=== PATIENT | female | born 1960 | race Caucasian/White ===

== ENCOUNTER 2022-09-01 07:20 | Inpatient (IN) | payer OTHER ==
[~2022-09-01] VITALS: Ht 152.4 cm; Wt 72.6 kg
--- NOTE | 2022-09-01 07:30 | NUR ---
Pt. BIB paramedics. AOX4, able to make needs known, lao speaking female. L hand IV site noted.
[2022-09-01] MEDS ORDERED: FAMO20TA8 PO (07:33)
[2022-09-01] MEDS ORDERED: DOCU100C36 PO (07:33)
[2022-09-01] MEDS ORDERED: MELO-105 PO (07:33)
[2022-09-01] MEDS ORDERED: INSU100I26 SQ (07:33)
[2022-09-01] MEDS ORDERED: ATOR20TA (07:33)
[2022-09-01] MEDS ORDERED: LOSA100T31 PO (07:33)
[2022-09-01] MEDS ORDERED: GLIM4TAB37 PO (07:33)
[2022-09-01] MEDS ORDERED: FERR325T28 PO (07:33)
[2022-09-01] MEDS ORDERED: GABA-532 PO (07:33)
[2022-09-01] MEDS ORDERED: MECLIZINE HCL 25 MG TABLET ONE (07:39)
[2022-09-01] MEDS ORDERED: PROCHLORPERAZINE EDISYLATE 10 MG/2 ML VIAL ONE (07:39)
[2022-09-01] MEDS ORDERED: IV NORMAL SALINE 1000 ML BAG IV ONE (07:45)
[2022-09-01] MEDS ORDERED: PROCHLORPERAZINE EDISYLATE 10 MG/2 ML VIAL IV ONE (07:45)
[2022-09-01] MEDS ORDERED: MECLIZINE HCL 25 MG TABLET PO ONE (07:45)
[2022-09-01 07:55] LABS: MEAN CORPUSCULAR HEMOGLOBIN 30.4 uug (24.7-32.8); MEAN CORPUSCULAR VOLUME 87.3 fL (75.5-95.3); PLATELET COUNT (AUTO) 390 K/uL (179-408)
--- NOTE | 2022-09-01 07:55 | NUR ---
gave all due meds as ordered. son at bedside. reminded pt. to provide urine
[2022-09-01 07:58] LABS: HEMATOCRIT 17.9 % (31.2-41.9)
--- NOTE | 2022-09-01 07:59 | NUR ---
cxr in progress
--- NOTE | 2022-09-01 08:53 | NUR ---
pt. in bed with son at bedside, VSS at this time
[2022-09-01] MEDS ORDERED: SWABABLE VALVE TRANSFER SET EA MC ONE (08:59)
[2022-09-01] MEDS ORDERED: IOHEXOL 300MG/ML 100 ML INFUS..BTL ONE (08:59)
[2022-09-01] MEDS ORDERED: IV NORMAL SALINE 250 ML IV ONE (08:59)
[2022-09-01 09:39] LABS: LIPASE 196 U/L (73-393)
[2022-09-01 09:40] LABS: ALANINE AMINOTRANSFERASE 17 U/L (14-59); ALKALINE PHOSPHATASE 107 U/L (50-136); ASPARTATE AMINOTRANSFERASE 12 U/L (15-37); BILIRUBIN,DIRECT < 0.1 mg/dL (0.0-0.2); BILIRUBIN,TOTAL 0.1 mg/dL (0.2-1.0); CARBON DIOXIDE 18 mmol/L (21-32); CHLORIDE 88 mmol/L (98-107); GLUCOSE 241 mg/dL (74-106); TOTAL PROTEIN, SERUM 5.7 g/dL (6.4-8.2); UREA NITROGEN, BLOOD 73 mg/dL (7-18)
--- NOTE | 2022-09-01 10:03 | NUR ---
blood transfusion at this time. VSS at this time.
--- NOTE | 2022-09-01 10:25 | NUR ---
re-check VS for blood transfusion, VSS, afebrile.
--- NOTE | 2022-09-01 10:25 | NUR ---
calling epic for call panel
--- NOTE | 2022-09-01 10:45 | NUR ---
called Antonio for report, informed that will call back
--- NOTE | 2022-09-01 10:46 | NUR ---
MD Disla spoke to MD Clements
--- NOTE | 2022-09-01 10:46 | NUR ---
pt. still in CT
--- NOTE | 2022-09-01 10:55 | NUR ---
pt. back from CT
--- NOTE | 2022-09-01 11:03 | NUR ---
endorsed to ZOE Alvarez
--- NOTE | 2022-09-01 11:53 | NUR ---
covid swab and collected sent to lab
--- NOTE | 2022-09-01 12:14 | NUR ---
collected urine and sent to lab
[2022-09-01 12:28] LABS: *BILIRUBIN,URIN NEGATIVE (NEGATIVE); *CLARITY,URINE CLEAR (CLEAR); *COLOR,URINE YELLOW (YELLOW); *KETONES,URINE NEGATIVE (NEGATIVE); *UROBILINOGEN,URINE 0.2 E.U./dl (NORMAL); LEUKOCYTE ESTERASE ,URINE NEGATIVE (NEGATIVE); NITRITE, URINE NEGATIVE (NEGATIVE); PH,URINE 5.5 (5.0-8.0)
[2022-09-01 13:25] VITALS: BP 150/51
[2022-09-01 13:36] LABS: *BLOOD, URINE TRACE (NEGATIVE); UGLUCOSE 1+ (NEGATIVE)
--- NOTE | 2022-09-01 13:43 | NUR ---
Pt. was admitted to TELE unit from ER and received report from Rylie. Pt. lives with family. Pt. had an episode of syncope at home. Denies hitting head. Pt. is alert and oriented x4. Able to make the need known. Skin is clean and intact. Continent of both bowel and bladder. compliance with the care given. Romanian speaking only. Call light within reach. Son noted at her bedside. Received 1 unit of blood in ER. No adverse reaction noted. Will keep monitoring the patient.
[2022-09-01 14:11] LABS: THYROID STIMULATING HORMONE 2.209 mIU/mL (0.358-3.740)
[2022-09-01 15:32] VITALS: BP 130/64
[2022-09-01] MEDS ORDERED: GABAPENTIN 100 MG CAPSULE PO SCH (16:00)
[2022-09-01] MEDS ORDERED: MORPHINE SULFATE 2 MG/1 ML DISP.SYRIN IV PRN (16:15)
[2022-09-01] MEDS ORDERED: ONDANSETRON 4 MG/2 ML VIAL IV PRN (16:15)
[2022-09-01] MEDS ORDERED: TEMAZEPAM 15 MG CAPSULE PO PRN (16:15)
[2022-09-01] MEDS ORDERED: ACETAMINOPHEN 325 MG TABLET PO PRN (16:15)
[2022-09-01] MEDS: DOCUSATE SODIUM 100 MG CAPSULE PO SCH (16:46)
[2022-09-01 18:28] LABS: LYMPHOCYTES % (MANUAL) 12 % (20-40); MONOCYTES % (MANUAL) 5 % (2-10); NEUTROPHILS % (MANUAL) 83 % (42-75)
[2022-09-01 19:06] LABS: BACTERIA,URINE FEW /HPF (NONE SEEN); RBC,URINE 0-3 /HPF (0-3); SQUAMOUS EPITHELIAL CELL,UR FEW /HPF (NONE SEEN); WBC,URINE NONE SEEN /HPF (0-3)
[2022-09-01 19:07] LABS: URINE AMORPHOUS URATE MODERATE /HPF
[2022-09-01] MEDS: ATORVASTATIN 20 MG TABLET PO SCH (20:44)
[2022-09-01] MEDS: FERROUS SULFATE 325 MG TABEC PO SCH (20:44)
[2022-09-01] MEDS: IV NS 1000 ML 1,000 ML IV PRN (20:49)
[2022-09-01 20:50] LABS: *OCCULT BLOOD STOOL NEGATIVE (NEGATIVE)
[2022-09-01] MEDS ORDERED: GABAPENTIN 300 MG CAPSULE PO ONE (21:00)
[2022-09-02] VITALS (17 sets, daily range): BP systolic 100–147; BP diastolic 41–70
--- NOTE | 2022-09-02 04:43 | NUR ---
AAOx4 Admitted for syncopal episode. All needs attended. No acute distress noted. Will monitor patient. Fall precautions maintained. Assisted to the BR . Voided. BM noted this shift. Denies any pain nor any discomfort. On telemetry, patient SR HR's 80's Kept comfortable.
[2022-09-02 07:26] LABS: MEAN CORPUSCULAR VOLUME 88.1 fL (75.5-95.3); PLATELET COUNT (AUTO) 318 K/uL (179-408)
[2022-09-02 07:42] LABS: HEMATOCRIT 17.2 % (31.2-41.9)
[2022-09-02 07:53] LABS: BILIRUBIN,TOTAL 0.2 mg/dL (0.2-1.0); CREATININE 2.6 mg/dL (0.6-1.3); MAGNESIUM 1.8 mg/dL (1.8-2.4); PHOSPHOROUS 3.9 mg/dL (2.5-4.9); POTASSIUM 4.1 mmol/L (3.5-5.1); TOTAL PROTEIN, SERUM 4.7 g/dL (6.4-8.2)
[2022-09-02] MEDS ORDERED: FUROSEMIDE 20 MG/2 ML VIAL IV PRN (08:00)
[2022-09-02 08:07] LABS: *IMMUNOGLOBULIN G, SERUM 570 mg/dL (586-1602)
[2022-09-02] MEDS: DOCUSATE SODIUM 100 MG CAPSULE PO SCH ×2 (08:41→16:18)
[2022-09-02] MEDS: FERROUS SULFATE 325 MG TABEC PO SCH ×2 (08:41→20:36)
--- NOTE | 2022-09-02 08:47 | NUR ---
At 0742 received a call from lab (Jesus) and reported critical lab value of Hgb 6.[address] Clements and received order for 2 units of RBC.
--- NOTE | 2022-09-02 08:51 | NUR ---
At 0851 received a call form lab and reported critical lab value of Troponin 96.[address] Clements and received NNO.
--- NOTE | 2022-09-02 08:55 | NUR ---
MRI WILL BE DONE TOMORROW AT 8AM,ALONZA THE CASE MANGER NOTIFIED VIA TEXT.PATIENT IS HAVING TRANSFUSION TODAY.PATIENT HAS TO NPO AFTER MIDNIGHT FOR MRI.
[2022-09-02] MEDS ORDERED: FAMOTIDINE 20 MG TABLET PO SCH (09:00)
[2022-09-02] MEDS ORDERED: DEXTROSE 50% 50 ML DISP.SYRIN IV PRN (09:15)
[2022-09-02] MEDS: FAMOTIDINE 20 MG TABLET PO SCH (10:02)
[2022-09-02] MEDS: BLOOD SUGAR DIAGNOSTIC 1 EACH STRIP VI SCH ×3 (11:26→20:36)
[2022-09-02] MEDS: INSULIN REGULAR, HUMAN 300 UNIT/3 ML VIAL SQ PRN ×2 (11:32→16:15)
[2022-09-02 14:04] LABS: CREATININE 2.7 mg/dL (0.6-1.3); POTASSIUM 4.3 mmol/L (3.5-5.1)
[2022-09-02 15:06] LABS: A/G RATIO 0.9 (0.7-1.7); ALBUMIN 2.2 g/dL (2.9-4.4); ALPHA-1-GLOBULIN 0.3 g/dL (0.0-0.4); ALPHA-2-GLOBULIN 0.9 g/dL (0.4-1.0); BETA GLOBULIN 0.8 g/dL (0.7-1.3); GAMMA GLOBULIN 0.5 g/dL (0.4-1.8); GLOBULIN, TOTAL 2.5 g/dL (2.2-3.9); M-SPIKE Not Observed g/dL (Not Observed)
--- NOTE | 2022-09-02 15:14 | NUR ---
Received critical lab value for BUN 83. Reported to Dr. Clements and no new order received.
[2022-09-02 16:17] LABS: *BILIRUBIN,URIN NEGATIVE (NEGATIVE); *CLARITY,URINE CLEAR (CLEAR); *COLOR,URINE YELLOW (YELLOW); *KETONES,URINE NEGATIVE (NEGATIVE); *UROBILINOGEN,URINE 0.2 E.U./dl (NORMAL); LEUKOCYTE ESTERASE ,URINE NEGATIVE (NEGATIVE); NITRITE, URINE NEGATIVE (NEGATIVE); PH,URINE 5.5 (5.0-8.0); UGLUCOSE 1+ (NEGATIVE)
[2022-09-02 16:22] LABS: *CREATININE,URINE 21.5 mg/dL (30-125); *URINE TOTAL PROTEIN RANDOM 114.2 mg/dL (<150/24HR)
[2022-09-02] MEDS: IV NS 1000 ML 1,000 ML IV PRN (16:26)
[2022-09-02 16:51] LABS: *BLOOD, URINE TRACE (NEGATIVE)
--- NOTE | 2022-09-02 16:54 | NUR ---
Pt. has been stable during the shift. No c/o pain. Received 2 units of RBC. Able to tolerated and no adverse reaction noted. Dr. Clements talked to the patient at her bedside. Compliance with the care given. All need attended and met. Able to ambulate with assist. Call light within reach. No c/o dizziness or headache. Will keep monitoring the patient.
--- NOTE | 2022-09-02 19:30 | NUR ---
Received patient lying in bed. AAOx4, mainly Indonesian speaking. In no acute distress. Denies any pain or SOB at this time. NSR on tele with HR of 88/min. IV site on right hand and left hand intact and patent. IVF infusing to right hand. Needs assessed and attended to. Safety measure initiated and call light within reached.
[2022-09-02] MEDS: GABAPENTIN 300 MG CAPSULE PO SCH (20:36)
[2022-09-02] MEDS: ATORVASTATIN 20 MG TABLET PO SCH (20:36)
[2022-09-03] VITALS: BP 122/44
[2022-09-03 02:07] LABS: RBC,URINE 0-3 /HPF (0-3)
[2022-09-03 02:08] LABS: BACTERIA,URINE NONE SEEN /HPF (NONE SEEN); SQUAMOUS EPITHELIAL CELL,UR FEW /HPF (NONE SEEN); WBC,URINE NONE SEEN /HPF (0-3)
[2022-09-03 04:00] VITALS: BP 120/49
--- NOTE | 2022-09-03 05:41 | NUR ---
In no acute distress. No complain of pain or SOB. IVF infusing. Needs attended to and met. Safety measure maintained and call light within reached.
[2022-09-03] MEDS: IV NS 1000 ML 1,000 ML IV PRN ×2 (06:10→23:26)
[2022-09-03 07:02] LABS: MEAN CORPUSCULAR HEMOGLOBIN 30.9 uug (24.7-32.8); MEAN CORPUSCULAR VOLUME 89.1 fL (75.5-95.3); PLATELET COUNT (AUTO) 253 K/uL (179-408)
[2022-09-03] MEDS: BLOOD SUGAR DIAGNOSTIC 1 EACH STRIP VI SCH ×4 (07:17→21:36)
[2022-09-03 07:30] LABS: HEMATOCRIT 20.5 % (31.2-41.9)
--- NOTE | 2022-09-03 08:01 | NUR ---
Pt. left the hospital via gurney for MRI. Pt. was stable upon the leaving. Alert and oriented.
[2022-09-03 09:20] LABS: BILIRUBIN,TOTAL 0.4 mg/dL (0.2-1.0); CREATININE 2.6 mg/dL (0.6-1.3); MAGNESIUM 1.7 mg/dL (1.8-2.4); PHOSPHOROUS 3.6 mg/dL (2.5-4.9); POTASSIUM 3.5 mmol/L (3.5-5.1); TOTAL PROTEIN, SERUM 4.4 g/dL (6.4-8.2)
--- NOTE | 2022-09-03 09:40 | NUR ---
Pt. came back from MRI.
[2022-09-03] MEDS: FAMOTIDINE 20 MG TABLET PO SCH (09:41)
[2022-09-03] MEDS: DOCUSATE SODIUM 100 MG CAPSULE PO SCH ×2 (09:41→16:10)
[2022-09-03] MEDS: FERROUS SULFATE 325 MG TABEC PO SCH ×2 (09:41→21:35)
--- NOTE | 2022-09-03 10:11 | NUR ---
AT 1008 received a call from erin Lee to report a critical lab value of Troponin 53. replied and no new order received. Will keep monitoring the pt.
[2022-09-03] MEDS ORDERED: EPOETIN ALFA 10,000 UNITS/ML VIAL SQ ONE (11:30)
[2022-09-03 11:35] VITALS: BP 106/41
--- NOTE | 2022-09-03 11:36 | NUR ---
Reported to Dr. Clements a comparison of lab works done for today and yesterday and after pt. received [address] Clements ordered Procrit 10,000 x1 now. Order was carried out and will keep monitoring the patient.
[2022-09-03] MEDS: INSULIN REGULAR, HUMAN 300 UNIT/3 ML VIAL SQ PRN ×3 (11:49→21:51)
[2022-09-03] MEDS ORDERED: EPOETIN ALFA-EPBX 10,000 UNIT/ML VIAL SQ ONE (12:00)
[2022-09-03 13:12] LABS: CREATININE 2.5 mg/dL (0.6-1.3); POTASSIUM 3.4 mmol/L (3.5-5.1)
[2022-09-03 16:20] VITALS: BP 112/41
--- NOTE | 2022-09-03 17:38 | NUR ---
Pt. has been stable during the shift. Alert and oriented x4. Call light within reach. Compliance with the care given. Able to make the need known. Safety measure applied. Will keep monitoring the patient.
[2022-09-03 20:21] VITALS: BP 124/53
[2022-09-03] MEDS: GABAPENTIN 300 MG CAPSULE PO SCH (21:35)
[2022-09-03] MEDS: ATORVASTATIN 20 MG TABLET PO SCH (21:35)
--- NOTE | 2022-09-03 22:30 | NUR ---
RECEIVED REPORT FROM AM NURSE INA PT IS ALERT AND ORIENTED X4 FAMILY AT BEDSIDE NO SIGNS OF RESPIRATORY DISTRESS NOTED. FALL AND SAFETY MAINTAINED WILL CONTINUE TO MONITOR FOR SAFETY PT HS BLOOD SUGAR IS 142 GAVE 2 UNITS OF REGULAR INSULIN NO SIGNS OF ADVERSE REACTION NOTED. WILL CONTINUE TO MONITOR FOR SAFETY. PT DENIES PAIN OTHER HS MEDICATION GIVEN NO SIGNS OF ASE NOTED. PT IS ON TELE RHYTHM SR. PT NOW HAS NEW ALVAREZ SHE IS ASSIGNED TO PATIENT . PT IS MADE AWARE VERBALIZED UNDERSTANDING.
[2022-09-04 06:29] LABS: MEAN CORPUSCULAR VOLUME 89.1 fL (75.5-95.3); PLATELET COUNT (AUTO) 273 K/uL (179-408)
[2022-09-04] MEDS: BLOOD SUGAR DIAGNOSTIC 1 EACH STRIP VI SCH ×3 (06:44→17:14)
[2022-09-04 06:54] LABS: BILIRUBIN,TOTAL 0.2 mg/dL (0.2-1.0); CREATININE 2.5 mg/dL (0.6-1.3); MAGNESIUM 1.8 mg/dL (1.8-2.4); PHOSPHOROUS 3.6 mg/dL (2.5-4.9); POTASSIUM 3.9 mmol/L (3.5-5.1); TOTAL PROTEIN, SERUM 4.6 g/dL (6.4-8.2)
[2022-09-04 07:29] LABS: HEMATOCRIT 20.5 % (31.2-41.9)
[2022-09-04] MEDS: DOCUSATE SODIUM 100 MG CAPSULE PO SCH ×2 (08:33→17:19)
[2022-09-04] MEDS: FERROUS SULFATE 325 MG TABEC PO SCH (08:33)
[2022-09-04] MEDS: FAMOTIDINE 20 MG TABLET PO SCH (08:33)
[2022-09-04 08:44] VITALS: BP 120/57
[2022-09-04] MEDS: INSULIN REGULAR, HUMAN 300 UNIT/3 ML VIAL SQ PRN (11:55)
[2022-09-04 12:00] VITALS: BP 134/64
[2022-09-04 12:29] LABS: CREATININE 2.5 mg/dL (0.6-1.3); POTASSIUM 4.1 mmol/L (3.5-5.1)
[2022-09-04] MEDS: IV NS 1000 ML 1,000 ML IV PRN (13:43)
[2022-09-04 16:16] VITALS: BP 99/42
--- NOTE | 2022-09-04 21:00 | NUR ---
RECD PT IN BED,RESTING QUIETLY, FAMILY AT BEDSIDE, DR. WU IN , ASCERTAINED PT'S CONDITION, NO DISTRESS NOTED. SR ON TELE, FOR DISCHARGE TO HOME W/ FAMILY. DC INSTRUCTIONS PROVIDED. PT'S HOME MEDS WILL BE PICKED UP BY FAMILY MEMBER IN AM,KEPT DRY AND CLEAN,PT BELONGING LIST COMPLETED AND SIGNED.IV ACCESS TAKEN OFF. NO BLEEDING NOTED.
--- NOTE | 2022-09-04 21:00 | NUR ---
DC'C PT VIA WC IN APPARENTLY FAIR CONDITION, VITAL SIGNS W/I NORMAL LIMITS, NO COPLAINTS OF PAIN PRESENTED. DC PAPERWORKS SIGNED AND COPY GIVEN TO PT.
[2022-09-05 13:06] LABS: A/G RATIO 0.9 (0.7-1.7); ALBUMIN 1.8 g/dL (2.9-4.4); ALPHA-1-GLOBULIN 0.2 g/dL (0.0-0.4); ALPHA-2-GLOBULIN 0.8 g/dL (0.4-1.0); BETA GLOBULIN 0.7 g/dL (0.7-1.3); GAMMA GLOBULIN 0.4 g/dL (0.4-1.8); GLOBULIN, TOTAL 2.1 g/dL (2.2-3.9); M-SPIKE Not Observed g/dL (Not Observed)
[2022-09-08 05:07] LABS: *ALPHA-1-GLOBULIN, 24 2.4 % (.); *ALPHA-2-GLOBULIN, U24 8.6 % (.); *BETA GLOBULIN,24 17.2 % (.); *PEU ALBUMIN, 24 59.9 % (.); *PEUGAMMA GLOBULIN, 24 11.9 % (.); *PROTEIN, TOTAL, UR 24 HR 79.3 mg/dL (Not Estab.)
[2022-09-08 10:07] LABS: IMMUNOGLOBULIN M, SERUM 35 mg/dL (26-217)
== END 2022-09-04 21:00 | disposition home or self-care (01) | DRG 663 ==
LOC: ER 07:20 → TELE3 12:48
PROVIDERS: ADMIT Internal Medicine; ATTEND Internal Medicine
PROC: 30233N1 Transfusion of Nonautologous Red Blood Cells into Peripheral Vein, Percutaneous Approach (ICD-10-PCS; principal; 2022-09-01)
DX: D50.0 Iron deficiency anemia secondary to blood loss (chronic) (principal); N17.0 Acute kidney failure with tubular necrosis; E43 Unspecified severe protein-calorie malnutrition; D68.59 Other primary thrombophilia; K86.2 Cyst of pancreas; C25.0 Malignant neoplasm of head of pancreas; E87.1 Hypo-osmolality and hyponatremia; E88.09 Other disorders of plasma-protein metabolism, not elsewhere classified; K83.8 Other specified diseases of biliary tract; E11.22 Type 2 diabetes mellitus with diabetic chronic kidney disease; N18.4 Chronic kidney disease, stage 4 (severe); R55 Syncope and collapse; G93.0 Cerebral cysts; I12.9 Hypertensive chronic kidney disease with stage 1 through stage 4 chronic kidney disease, or unspecified chronic kidney disease; Z79.4 Long term (current) use of insulin; Z79.84 Long term (current) use of oral hypoglycemic drugs; E78.5 Hyperlipidemia, unspecified; K40.90 Unilateral inguinal hernia, without obstruction or gangrene, not specified as recurrent; K42.9 Umbilical hernia without obstruction or gangrene; E66.9 Obesity, unspecified; Z68.31 Body mass index [BMI] 31.0-31.9, adult; Z87.11 Personal history of peptic ulcer disease; M19.90 Unspecified osteoarthritis, unspecified site; Z74.09 Other reduced mobility; K82.8 Other specified diseases of gallbladder; Z78.0 Asymptomatic menopausal state; M51.36 Other intervertebral disc degeneration, lumbar region
CPT/HCPCS: 36415; 70030-TC; 70450; 71045; 74181; 82378; 82668; 82746; 82784; 83550; 83690; 83735; 83930; 83935; 83970; 84100; 84155; 84165; 84300; 84443; 84484; 84550; 85025; 85730; 86301; 86334; 86850; 86900; 86901; 86920; 93005; 93307; A4663; G0378; J0780; J0885; J1815; J7040; J8597; P9016; Q9967